=== PATIENT | female | born 1995 | race Two or more races ===

== ENCOUNTER 2024-12-14 04:08 | Emergency (ER) | payer MEDICAID, OTHER ==
[~2024-12-14] VITALS: Ht 165.1 cm; Wt 60.3 kg
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
[2024-12-14] MEDS ORDERED: TIZA-142 PO (04:49)
[2024-12-14] MEDS ORDERED: IBUP-1454 PO (04:49)
[2024-12-14 04:59] VITALS: BP 121/91; PULSE 85; RESP 20; TEMP 98.4; O2SAT 99
== END 2024-12-14 04:59 | disposition home or self-care (01) ==
LOC: ER 04:08
DX: S13.4XXA Sprain of ligaments of cervical spine, initial encounter (principal); S50.01XA Contusion of right elbow, initial encounter; M79.601 Pain in right arm; M79.602 Pain in left arm; V89.2XXA Person injured in unspecified motor-vehicle accident, traffic, initial encounter; Y93.I9 Activity, other involving external motion; Y92.488 Other paved roadways as the place of occurrence of the external cause; Y99.8 Other external cause status